=== PATIENT | female | born 1980 | race Caucasian/White ===

== ENCOUNTER 2015-12-24 09:16 | Outpatient (RCR) | payer OTHER ==
[~2015-12-24] VITALS: Ht 170.2 cm; Wt 72.7 kg
[~2015-12-24 09:16] MED LIST: ADDERALL XR30 MG PO; ALLEGRA 180MG180 MG PO; ALLERGY SHOTS; ALYACEN 1/35 351 TAB PO; BIRTH CONTROL; BOTOX 100100 U/VIAL IM; DEPAKOTE500 MG PO; FIORICET 325 MG1 TA1 PO; FOLIC ACID 11 MG/TA1 PO; IPRATROPIUM BROM3 M1 IH; KLONOPIN 0.5MG0.5 MG PO; KLONOPIN 1MG1 MG PO; LEVBID0.375 MG PO; LEXAPRO 10MG10 MG PO; MAG-OX 400400 MG/TAB PO; MICARDIS20 MG PO; MICARDIS40 MG PO; NATURE'S BLEND100 M1 PO; NEXIUM 40MG40 MG PO; PAMELOR 25MG25 MG PO; PATANOL OPHTHALM5 ML OD; RT ADVAIR 528 DISKUS IH; RT SPIRIVA18 MCG IH; VENTOLIN0.09 MG IH; ZANTAC 150150 MG PO; ZYRTEC ALLERGY10 MG PO
[2015-12-24 10:09] VITALS: BP 101/75; PULSE 94; TEMP 97.6
== END 2016-02-20 09:19 | disposition home or self-care (01) ==
LOC: EUO 09:16 → EDSTATUS 09:45 → EUO 02-20 09:19
DX: J45.40 Moderate persistent asthma, uncomplicated (principal)

== ENCOUNTER → 2016-02-20 | Outpatient (CLI) | payer OTHER ==
[2016-02-20 09:23] VITALS: BP 116/77; PULSE 100; TEMP 97.3
== END ==
LOC: EUO 09:19
DX: J30.89 Other allergic rhinitis (principal)

== ENCOUNTER 2016-03-24 10:15 | Outpatient (CLI) | payer OTHER ==
[~2016-03-24] VITALS: Ht 170.2 cm; Wt 71.0 kg
[2016-03-24 10:28] VITALS: BP 115/74; PULSE 95; TEMP 97.6
== END 2016-03-24 11:37 | disposition home or self-care (01) ==
LOC: EUO 10:15
DX: J45.50 Severe persistent asthma, uncomplicated (principal)

== ENCOUNTER → 2016-04-21 | Outpatient (CLI) | payer OTHER ==
[~2016-04-21] VITALS: Ht 170.2 cm; Wt 75.0 kg
[2016-04-21 09:17] VITALS: BP 102/67; PULSE 89; TEMP 97.9
== END ==
LOC: EUO 08:53
DX: J45.50 Severe persistent asthma, uncomplicated (principal)

== ENCOUNTER 2016-05-20 12:01 | Outpatient (CLI) | payer OTHER ==
[~2016-05-20] VITALS: Ht 170.2 cm; Wt 68.2 kg
== END 2016-05-20 12:50 | disposition home or self-care (01) ==
LOC: EUO 12:01
DX: J45.50 Severe persistent asthma, uncomplicated (principal)

== ENCOUNTER 2016-06-17 09:07 | Outpatient (CLI) | payer OTHER ==
[~2016-06-17] VITALS: Ht 170.2 cm; Wt 72.7 kg
[2016-06-17 09:39] VITALS: BP 120/59; PULSE 90; TEMP 98.5
== END 2016-06-17 14:38 | disposition home or self-care (01) ==
LOC: EUO 09:07
DX: J45.50 Severe persistent asthma, uncomplicated (principal)
CPT/HCPCS: J2357

== ENCOUNTER 2016-08-05 12:43 | Outpatient (CLI) | payer OTHER ==
[2016-08-05 13:53] VITALS: BP 114/72; PULSE 89; TEMP 98.4
== END 2016-08-05 13:58 | disposition home or self-care (01) ==
LOC: EUO 12:43
DX: Z79.899 Other long term (current) drug therapy (principal)

== ENCOUNTER 2016-09-02 13:16 | Outpatient (CLI) | payer OTHER ==
[~2016-09-02] VITALS: Ht 170.2 cm; Wt 78.0 kg
[2016-09-02 13:58] VITALS: BP 113/73; PULSE 89; TEMP 98.6
== END 2016-09-02 14:11 | disposition home or self-care (01) ==
LOC: EUO 13:16
DX: Z79.899 Other long term (current) drug therapy (principal)
CPT/HCPCS: J2357

== ENCOUNTER 2016-09-30 08:49 | Outpatient (CLI) | payer OTHER ==
[~2016-09-30] VITALS: Ht 170.2 cm; Wt 65.1 kg
[2016-09-30 10:30] VITALS: BP 115/71; PULSE 79; TEMP 98.3
== END 2016-09-30 13:12 | disposition home or self-care (01) ==
LOC: EUO 08:49
DX: J45.50 Severe persistent asthma, uncomplicated (principal); Z79.899 Other long term (current) drug therapy
CPT/HCPCS: J2357

== ENCOUNTER 2016-10-28 09:10 | Outpatient (CLI) | payer OTHER ==
[~2016-10-28] VITALS: Ht 170.2 cm; Wt 68.1 kg
[2016-10-28 09:28] VITALS: BP 110/67; PULSE 103; TEMP 98.7
== END 2016-10-28 10:38 | disposition home or self-care (01) ==
LOC: EUO 09:10
DX: J45.50 Severe persistent asthma, uncomplicated (principal); Z79.899 Other long term (current) drug therapy
CPT/HCPCS: J2357

== ENCOUNTER 2016-11-29 08:52 | Outpatient (CLI) | payer OTHER ==
[~2016-11-29] VITALS: Ht 170.2 cm; Wt 65.0 kg
[2016-11-29 09:53] VITALS: BP 118/78; PULSE 76; TEMP 98.3
== END 2016-11-29 13:52 | disposition home or self-care (01) ==
LOC: EUO 08:52
DX: Z79.899 Other long term (current) drug therapy (principal)
CPT/HCPCS: J2357

== ENCOUNTER 2016-12-28 09:12 | Outpatient (CLI) | payer OTHER ==
[~2016-12-28] VITALS: Ht 170.2 cm; Wt 65.8 kg
[2016-12-28 10:25] VITALS: BP 107/76; PULSE 99; TEMP 98
== END 2016-12-28 10:25 | disposition home or self-care (01) ==
LOC: EUO 09:12
DX: Z76.0 Encounter for issue of repeat prescription (principal); Z79.899 Other long term (current) drug therapy

== ENCOUNTER 2017-01-25 09:44 | Outpatient (CLI) | payer OTHER ==
[2017-01-25 10:00] VITALS: BP 117/78; PULSE 94; TEMP 98
== END 2017-01-25 11:11 | disposition home or self-care (01) ==
LOC: EUO 09:44
DX: J45.50 Severe persistent asthma, uncomplicated (principal)